=== PATIENT | female | born 1955 | race Caucasian/White ===

== ENCOUNTER → 2016-08-19 | Outpatient (CLI) | payer MEDICARE | END | disposition home or self-care (01) | LOC: YCHH 10:00 | PROVIDERS: ATTEND Family Medicine | DX: G35 Multiple sclerosis (principal); E78.5 Hyperlipidemia, unspecified; E03.9 Hypothyroidism, unspecified; D64.9 Anemia, unspecified; F32.9 Major depressive disorder, single episode, unspecified ==

== ENCOUNTER → 2016-09-11 | Outpatient (CLI) | payer MEDICARE ==
--- NOTE | 2016-09-11 15:43 | MRI ---
EXAM DESCRIPTION: Brain w/wo Contrast CLINICAL HISTORY: 60 years Female, MULTIPLE SCLEROSIS COMPARISON: June 28, 2013 TECHNIQUE: MRI of the brain is performed according to our usual protocol including multiplanar multi sequence technique. Post gadolinium imaging is performed following IV administration of gadolinium enhancement FINDINGS: Preliminary noncontrast imaging demonstrates ventriculomegaly, essentially unchanged from prior study without evidence of mass effect or midline shift. No evidence of restricted diffusion is seen. No extra-axial fluid collections or mass effect is noted. No evidence of intracranial or parenchymal hemorrhage is seen and a large focal area of cortical gliosis or encephalomalacia is not apparent. T2 and FLAIR signal intensity images demonstrate extensive white matter disease in a pattern typical of a multiple sclerosis. Pattern and distribution is very similar to that previously seen. There is however a more central cystic appearance to some of the areas of abnormality on the FLAIR sequence on today's examination. One or two of the periventricular areas appear slightly less prominent than previously seen and others appear the same or minimally more indistinct but more prominent. Overall the degree of white matter disease appears little changed but with a slightly different pattern with a central area of diminished white matter signal within the lesions. Wonder if this could be related to ongoing therapy. Postcontrast imaging demonstrates normal meningeal and vascular structures but enhancing lesions are not apparent. Incidental note of a previous numerous lesions within the cerebellar hemispheres is less prominent on today's follow-up study. IMPRESSION: 1. Typical white matter changes of multiple sclerosis that are moderately extensive throughout both cerebral hemispheres in a periventricular and white matter distribution with less obvious involvement within the cerebellum with less intense lesions noted. 2. The extent of disease is approximately the same as previously seen but the pattern is slightly different with less intense white matter signal changes in the central portion of each lesion suggesting either improvement or developing cystic change, possibly related to therapy. A few of the lesions appear slightly less prominent and others slightly more prominent but less distinct in appearance. 3. Large new areas of abnormality are not apparent. 4. Stable modest ventriculomegaly consistent with an element of atrophy. 5. No evidence of restricted diffusion or abnormal enhancement to suggest an acute new area of infarction or ischemia or plaque formation. 6. Subdural or subarachnoid hemorrhage or mass effect or midline shift is not apparent. Electronically signed by: Sathya Alarcon MD 09/11/2016 3:41 PM CDT
--- NOTE | 2016-09-11 15:53 | MRI ---
EXAM DESCRIPTION: Cervical Spine w/wo Contrast CLINICAL HISTORY: CERVICAL DISC DISORDER W MYELOPATHY, HIGH CERVICAL REGION history of MS COMPARISON: November 29, 2013 TECHNIQUE: MRI of the cervical spine is performed according to our usual protocol. Pre and postcontrast axial and sagittal imaging is correlated with prior study FINDINGS: MRI of the cervical spine demonstrates normal alignment with multilevel disc desiccation with mild disc space narrowing at C6-7 and multilevel mild annular bulges at all levels from C3-4 through C6-7. The foramen magnum and craniocervical junction as well as the C2-3 disc level and C7-T1 and upper thoracic disc level is normal in appearance. There is a moderate central disc bulge at T2-3 that in retrospect is unchanged from 2013 and without significant or severe spinal stenosis. No intradural or definite intramedullary mass is noted and a distinct or definite lesion within the cervical or upper thoracic cord is not apparent. No definite expansile lesion or area of increase cervical cord signal intensity is seen. At the C5 level on the right posterior aspect of the cord there is questionably a tiny area of increased cord signal intensity that may represent a area of demyelination. There is no associated enhancement or mass effect at this location. IMPRESSION: 1. Multilevel mild degenerative disc disease and annular bulges from C3-4 through C6-7 and stable small mild central disc protrusion at T2-3, unchanged. 2. There is questionably a very small area of increased signal and demyelination in the right posterior aspect of the cord at the inferior C5 level without associated mass effect or enhancement that represents a questionable solitary lesion. 3. No bony abnormalities or other changes seen. Electronically signed by: Sathya Alarcon MD 09/11/2016 3:52 PM CDT
== END | disposition home or self-care (01) ==
LOC: MRI 09:54
PROVIDERS: ATTEND Psychiatry & Neurology Neurology
DX: G35 Multiple sclerosis (principal); M50.01 Cervical disc disorder with myelopathy, high cervical region; Z01.812 Encounter for preprocedural laboratory examination

== ENCOUNTER 2016-10-22 12:32 | Observation (INO) | payer MEDICARE ==
--- NOTE | 2016-10-22 12:34 | HP ---
SUPERVISING PHYSICIAN: Sathya Lazar M.D. CHIEF COMPLAINT: Right lower leg swelling. HISTORY OF PRESENT ILLNESS: This is a 61 year-old female patient who was seen in her primary care physician's office today, Dr. Lazar, due to right lower leg swelling. She had been seen several weeks ago by Lanny Valentine NP, for some swelling and had received some Hydrochlorothiazide. Her condition has not improved and she saw Dr. Serrano in a clinic appointment today. It is to be noted that she does have a history of multiple sclerosis since 2008 and she has much more difficulty in the right side than she does her left side due to her multiple sclerosis. She was seen in clinic today and routine lab was done. Her complete metabolic panel was basically within normal limits with the exception of her alkaline phosphatase was slightly elevated at 141. She also had a CBC that was within normal limits except slightly elevated eosinophil percentage. She was sent over to the hospital for a right lower extremity venous Doppler. Radiology reported to Dr. Lazar that she had a DVT of the right lower leg and I was called for admission. PAST MEDICAL HISTORY: 1. Multiple sclerosis diagnosed in 2008. 2. History of tobacco abuse. 3. Osteoporosis. 4. Peripheral vascular disease. 5. Atopic eczema. PAST SURGICAL HISTORY: 1. Tonsillectomy and adenoidectomy. 2. Multiple bunion removals. 3. Right hip surgery due to right femur fracture. OUTPATIENT MEDICATIONS: Per the EMR and awaiting verification. ALLERGIES: PENICILLIN. SOCIAL HISTORY: She has a past history of cigarette smoking and she quit in July of 2015. She denies any ETOH or illicit drug use. REVIEW OF SYSTEMS: GENERAL: Negative for chills, fever, fatigue or weight loss. RESPIRATORY: Negative for cough, dyspnea or wheezing. CARDIOVASCULAR: Negative for chest pain, palpitations or tachycardia. GASTROINTESTINAL: Negative for constipation, diarrhea, nausea, vomiting or abdominal pain. MUSCULOSKELETAL: Negative for back pain or myalgias. EXTREMITIES: Positive for right lower extremity edema. INTEGUMENT: Positive for rash on the right lower extremity. Negative for any lesions. NEUROLOGIC: Negative for dizziness, headaches or seizures. PHYSICAL EXAMINATION: VITAL SIGNS: She is afebrile, heart rate 82, blood pressure 125/77, respiratory rate 16, O2 sat 99% on room air. GENERAL: This is a 63 year-old female patient lying in her hospital bed. She is in no acute distress. HEENT: Normocephalic and atraumatic. Pupils are equal and reactive. Oropharynx is clear. Oral mucous membranes are moist. NECK: Supple without mass. CHEST: Clear to auscultation bilaterally. There is equal rise and fall of the chest with inspiration and expiration. CARDIOVASCULAR: Regular rate and rhythm. ABDOMEN: Soft, nondistended, non-tender. Bowel sounds are positive. EXTREMITIES: The right lower extremity is edematous from distal of the knee down to the foot. Pedal pulses bilaterally are about +2. SKIN: She does have an eczema-like rash on her right lower extremity that is circumferential just above the ankle area. NEUROLOGIC: She is awake, alert and oriented times three. LABORATORY: Labs and films are as per the History of Present Illness with the exception of her PT 11.6, INR 1.03 and PTT is 26.2. All other labs and films have been reviewed via the EMR. ASSESSMENT: 1. Right lower extremity deep venous thrombosis. 2. Multiple sclerosis since 2008. 3. Right lower extremity edema most likely due to #1. 4. Atopic eczema. PLAN: We will place the patient in observation. She will receive Lovenox 1 mg per kg times 2 doses. She will start her Xarelto tomorrow approximately 2 hours prior to what would be the third dosing of her Lovenox, although she will only get 2 doses of Lovenox. Her Xarelto dosing will be 15 mg b.i.d. for 21 days and then 20 mg daily. She will have followup with Dr. Lazar to determine how long she will need to be on her Xarelto treatment. I will recheck some labs in the morning and hopefully she will be discharged tomorrow afternoon with close followup with Dr. Lazar. I have restarted her home medication as well as given her some steroid cream for her eczema on the lower right leg. We will continue to monitor the patient closely and followup as needed. Dr. Lazar is the supervising physician and available for consultation. #[id number] [facility]
[2016-10-22] MEDS ORDERED: SODIUM CHLORIDE 0.9% (FLUSH) 10 ML SYG IV PRN ×2 (14:37→14:41)
[2016-10-22] MEDS ORDERED: ACETAMINOPHEN 325 MG TAB PO PRN (14:41)
[2016-10-22] MEDS ORDERED: IV SET AND CAP CHANGE INJ INJ SCH ×2 (15:00)
[2016-10-22] MEDS ORDERED: PANTOPRAZOLE SODIUM IV 40 MG VIAL IV SCH (15:00)
[2016-10-22] MEDS ORDERED: CYCLOBENZAPRINE HCL 10 MG TAB PO PRN (15:05)
[2016-10-22] MEDS ORDERED: traMADol HCL 50 MG TAB PO PRN (15:05)
[2016-10-22] MEDS ORDERED: diazePAM 5 MG TAB PO PRN (15:05)
[2016-10-22] MEDS: ENOXAPARIN SODIUM 60 MG/0.6 ML SYG SUBCU SCH (15:37)
[2016-10-22] MEDS ORDERED: PANTOPRAZOLE SODIUM TAB 40 MG PO ONE (19:36)
[2016-10-22] MEDS: TRIAMCINOLONE 0.1% CREAM 15 GM TUBE TOP SCH (20:52)
[2016-10-22] MEDS: SODIUM CHLORIDE 0.9% (FLUSH) 10 ML SYG IV SCH (20:52)
[2016-10-23] MEDS: ENOXAPARIN SODIUM 60 MG/0.6 ML SYG SUBCU SCH (02:53)
[2016-10-23] MEDS ORDERED: PANTOPRAZOLE SODIUM TAB 40 MG PO SCH (06:30)
[2016-10-23] MEDS ORDERED: BIFIDOBACTERIUM INFANTIS 4 MG CAP ONE (07:10)
[2016-10-23] MEDS: TRIAMCINOLONE 0.1% CREAM 15 GM TUBE TOP SCH (08:36)
[2016-10-23] MEDS: SODIUM CHLORIDE 0.9% (FLUSH) 10 ML SYG IV SCH (08:36)
[2016-10-23] MEDS ORDERED: DIMETHYL FUMARATE 240 MG PO SCH (09:00)
[2016-10-23] MEDS ORDERED: NON-FORMULARY MEDICATION 1 EA MIS (Probiotic Product [Probiotic] 1 TAB) PO SCH (09:00)
[2016-10-23] MEDS ORDERED: DIMETHYL FUMARATE PO SCH (09:00)
[2016-10-23] MEDS ORDERED: BIFIDOBACTERIUM INFANTIS 4 MG CAP PO SCH (09:00)
[2016-10-23] MEDS ORDERED: NON-FORMULARY MEDICATION 1 EA MIS PO SCH (13:00)
[2016-10-23 14:14] VITALS: BP 102/64; TEMP 98.4; O2SAT 97
[2016-10-23] MEDS ORDERED: POTASSIUM CHLORIDE 20 MEQ TAB PO ONE (14:38)
--- NOTE | 2016-10-23 15:19 | DS ---
SUPERVISING PHYSICIAN: Sathya Lazar M.D. DISCHARGE DIAGNOSIS: 1. Right lower extremity deep venous thrombosis. 2. Multiple sclerosis since 2008. 3. Right lower extremity edema most likely due to number 1. 4. Atopic eczema. HISTORY OF PRESENT ILLNESS: This is a 61 year-old female patient who was seen in her primary care physician's office today, Dr. Lazar, due to right lower leg swelling. She had been seen several weeks ago by Lanny Valentine NP, for some swelling and had received some Hydrochlorothiazide. Her condition has not improved and she saw Dr. Serrano in a clinic appointment today. It is to be noted that she does have a history of multiple sclerosis since 2008 and she has much more difficulty in the right side than she does her left side due to her multiple sclerosis. She was seen in clinic today and routine lab was done. Her complete metabolic panel was basically within normal limits with the exception of her alkaline phosphatase was slightly elevated at 141. She also had a CBC that was within normal limits except slightly elevated eosinophil percentage. She was sent over to the hospital for a right lower extremity venous Doppler. Radiology reported to Dr. Lazar that she had a DVT of the right lower leg and I was called for admission. HOSPITAL COURSE: The patient was given Lovenox 1 mg per kg times 2 doses and then started on the started pack of Xarelto at 15 mg b.i.d. times 21 days. Her CBC and chemistries were stabilized with the exception of her potassium was slightly low this morning at 3.1 and she received 40 mEq of K-Dur. Her pedal pulses were palpable bilaterally at +2. She was also treated with Triamcinolone on the eczema on the right lower leg. Her vital signs have been stable and she can be discharged home. DISCHARGE PLAN: The patient will be discharged home in stable condition. She has a followup appointment with Dr. Lazar on 10/28/16 at 10:00 AM. She also has [facility] and physical therapy. I have also given her a Xarelto starter pack for DVT treatment. She will be getting 15 mg b.i.d. for 21 days and then change to 20 mg daily. She will have enough Xarelto for 30 days. She can get that refilled with Dr. Lazar. She is to call Dr. Lazar's office or return to the hospital for any complaints or worsening symptoms. DISCHARGE MEDICATIONS: 1. Tramadol. 2. Probiotics. 3. Tecfidera. 4. Diazepam. 5. Cyclobenzaprine. 6. Vitamin D. 7. Aspirin. 8. Xarelto. Dr. Lazar is the collaborating physician available for consultation. #[id number] [facility]
== END 2016-10-23 15:12 | disposition home or self-care (01) ==
LOC: MS 12:32
PROVIDERS: ADMIT Nurse Practitioner Acute Care; ATTEND Nurse Practitioner Acute Care
DX: I82.411 Acute embolism and thrombosis of right femoral vein (principal); I82.431 Acute embolism and thrombosis of right popliteal vein; G35 Multiple sclerosis; R60.0 Localized edema; L30.8 Other specified dermatitis; M81.0 Age-related osteoporosis without current pathological fracture; I73.9 Peripheral vascular disease, unspecified; Z88.0 Allergy status to penicillin; Z87.891 Personal history of nicotine dependence
CPT/HCPCS: 36415 ×2; 80053; 85025; 85610; 85730; 94760 ×6; 96372 ×2; 96374; G0378; J1650 ×2

== ENCOUNTER → 2016-10-22 | Outpatient (CLI) | payer MEDICARE ==
--- NOTE | 2016-10-23 08:51 | US ---
EXAM DESCRIPTION: Venous,Lower Extremity RT CLINICAL HISTORY: EDEMA COMPARISON: None. TECHNIQUE: 2D grayscale and color venous duplex Doppler evaluation of the lower extremity are obtained from groin to calf. FINDINGS: Hypoechoic thrombus with noncompressibility is seen in the right common femoral vein extending to the popliteal vein. There is lack of significant vascular flow in the deep venous vasculature. There is also mild hypoechoic thrombus in the greater saphenous vein. Posterior tibial and peroneal veins show normal flow without thrombus. Mild subcutaneous soft tissue edema of the distal right lower extremity is seen. IMPRESSION: Extensive deep venous thrombosis of the right lower extremity from the common femoral vein to the popliteal vein is seen.. Findings on this exam were called to Dr. Lazar at 0845 hours on October 23, 2016.. Electronically signed by: Suman Joy MD 10/23/2016 8:49 AM CDT
== END | disposition home or self-care (01) ==
LOC: US 11:47
PROVIDERS: ATTEND Family Medicine
DX: I82.411 Acute embolism and thrombosis of right femoral vein (principal); R60.0 Localized edema

== ENCOUNTER → 2017-03-05 | Outpatient (CLI) | payer MEDICARE | END | disposition home or self-care (01) | LOC: YCHH 10:38 | PROVIDERS: ATTEND Family Medicine | DX: G35 Multiple sclerosis (principal); E78.5 Hyperlipidemia, unspecified; N39.0 Urinary tract infection, site not specified ==

== ENCOUNTER → 2018-01-18 | Outpatient (CLI) | payer MEDICARE | LOC: YCHH 10:11 | PROVIDERS: ATTEND Family Medicine | DX: G35 Multiple sclerosis (principal); E78.5 Hyperlipidemia, unspecified; D64.9 Anemia, unspecified ==

== ENCOUNTER → 2018-08-31 | Outpatient (CLI) | payer MEDICARE | LOC: YCHH 09:53 | PROVIDERS: ATTEND Family Medicine | DX: G35 Multiple sclerosis (principal); E78.5 Hyperlipidemia, unspecified; E55.9 Vitamin D deficiency, unspecified; D64.9 Anemia, unspecified ==

== ENCOUNTER → 2018-09-07 | Outpatient (CLI) | payer MEDICARE | LOC: GMAM 09:55 | PROVIDERS: ATTEND Family Medicine | DX: D64.9 Anemia, unspecified (principal) ==

== ENCOUNTER → 2018-09-15 | Outpatient (CLI) | payer MEDICARE ==
--- NOTE | 2018-09-15 21:10 | MRI ---
EXAM DESCRIPTION: Brain w/wo Contrast: Magnetic Resonance Imaging. CLINICAL HISTORY: 62 years Female MS COMPARISON: MRI scan of the brain without gadolinium contrast 09/11/2016. TECHNIQUE: Multiplanar, high-field MRI, multiple conventional sequences, without and with gadolinium IV contrast. No adverse reactions. Multiple axial diffusion sequences. . Technically difficult study with most of the postcontrast images degraded by patient motion. FINDINGS: Hyperintense FLAIR and T2-weighted signal in the periventricular white matter/mike radiata and centrum semiovale and subcortical white matter, typical for multiple sclerosis. Cystic changes are seen in some of the white matter lesions showing no significant increase or decrease. Minimal if any involvement of the corpus callosum is stable. No abnormal enhancement. Slight increase in size of a periventricular right frontal lesion since the prior study. Decreasing involvement of the left parietal centrum semiovale is noted. No enhancement. Normal signal in the bilateral basal ganglia except for one small stable lesion posterior upper right aspect. No hemorrhage, no cerebral edema, no mass-effect. Normal contrast enhancement. Normal signal in the brainstem. Small lesions again seen in the bilateral cerebellar hemispheres. No hemorrhage, no cerebral edema, no mass-effect. Normal contrast enhancement. Concordance of the diffusion and non-diffusion sequences with no evidence of acute or subacute infarction. Ventricles are enlarged as seen on the prior study, slightly larger on the left. Cortical sulci and other CSF spaces, and the subdural spaces are stable, slightly more prominent on the left.. No effacement or displacement. No midline shift. No extra-axial hemorrhage. Normal contrast enhancement. IACs are symmetric bilaterally. No fluid in the bilateral mastoid air cells. No mass effect in the bilateral Cerebellopontine angles. Normal contrast enhancement. Pituitary gland occupies most of the sella. Normal contrast enhancement. Base of the cerebellar tonsils is above the foramen magnum. Minimal mucoperiosteal thickening in some of the paranasal sinuses. The bony calvarium is intact. Again noted is hyperostosis of the bilateral inner table of the frontal bones, unchanged. IMPRESSION: 1. Compared to the prior study, there is minimal change in periventricular mike radiata white matter lesions and white matter lesions in the centrum semiovale, consistent with multiple sclerosis. No abnormal enhancement. 2. Noncontrast MRI diffusion study showing no evidence of acute or subacute significant ischemia or infarction. Electronically signed by: Lee Cage MD 09/15/2018 9:07 PM CDT
--- NOTE | 2018-09-16 09:22 | MRI ---
EXAM DESCRIPTION: Cervical Spine w/wo Contrast: MRI. CLINICAL HISTORY: 62 years Female MS COMPARISON: MRI scan of the cervical spine without and with gadolinium IV contrast 09/11/2016. TECHNIQUE: Multiplanar, high-field MRI, multiple sequences, before and after gadolinium IV contrast injection. Cervical spine. FINDINGS: Normal cord signal; no cord compression, no cord swelling, no cord edema. No abnormal cord enhancement. The questionable region of abnormal cord signal at C5 on the prior study is not seen on this study. C3-C4: tiny posterior disc bulge. Bilateral small uncinate spurs. Canal and neural foramina are patent. Facets are negative. Normal enhancement. C4-C5: Normal signal in the disc and disc space preserved. No bulging. Minimal hypertrophy of the left facet and narrowing of the left neural foramen. Canal and right neuroforamen are patent. No abnormal enhancement. C5-C6: Normal signal in the disc with disc space preserved. Anterior disc bulge with endplate ridging. Tiny posterior midline bulge but not abutting the cord. Small left uncinate spur and minimal narrowing of the left neural foramen. Canal and right neuroforamen are patent. Normal enhancement. C6-C7: Minimal disc space loss with disc desiccation. Tiny posterior disc osteophyte bulge into the canal but not abutting the cord. Bilateral uncinate spurs. Mild canal and mild neural foraminal narrowing. Normal contrast enhancement. Progressed C7-T1: C7-T1: normal signal in the disc with disc space preserved. Facets are normal. Canal and neural foramina are patent, but there are bilateral perineural cysts in the foramina. No abnormal enhancement. T1-T2: Normal signal in the disc with disc space preserved. Facets are normal. Canal is patent. Large bilateral perineural cysts in the bilateral neural foramina but no abnormal enhancement. Also bilateral perineural cysts in the T2-T3 neural foramina larger on the right. No abnormal enhancement. Normal signal in the C2-C3 disc with no bulging. Disc spaces preserved. Canal and neural foramina are patent. Facet joints negative. Spinal alignment minimally kyphotic C2-C4. Atlantoaxial joint no arthrosis. Base of the cerebellar tonsils is above the foramen magnum. Paravertebral soft tissues negative. Vertebral bodies are not compressed at any level. Normal marrow signal in the remaining vertebral bodies and the posterior elements. IMPRESSION: 1. Normal signal in the entire cord with no edema, no atrophy, and no swelling, and normal enhancement. No cord compression. 2. Minimal spondylosis at C5-6 and C6-7 with no significant disc bulge. No canal or neural foraminal stenosis. Normal enhancement. Stable since the prior study. 3. Multiple bilateral perineural cysts in the neural foramina as described from C7-T1 to T2-T3. No enhancement. Stable since the prior study. Electronically signed by: Lee Cage MD 09/16/2018 9:20 AM CDT
== END ==
LOC: MRI 10:07
PROVIDERS: ATTEND Psychiatry & Neurology Neurology
DX: G35 Multiple sclerosis (principal); M50.01 Cervical disc disorder with myelopathy, high cervical region; M47.892 Other spondylosis, cervical region; M71.38 Other bursal cyst, other site

== ENCOUNTER → 2018-10-12 | Outpatient (CLI) | payer MEDICARE | LOC: YCHH 10:34 | PROVIDERS: ATTEND Family Medicine | DX: E55.9 Vitamin D deficiency, unspecified (principal) ==

== ENCOUNTER → 2019-02-24 | Outpatient (CLI) | payer MEDICARE | LOC: YCHH 10:14 | PROVIDERS: ATTEND Family Medicine | DX: D64.9 Anemia, unspecified (principal); N18.9 Chronic kidney disease, unspecified; E78.5 Hyperlipidemia, unspecified; E11.9 Type 2 diabetes mellitus without complications; E55.9 Vitamin D deficiency, unspecified ==

== ENCOUNTER → 2019-09-04 | Outpatient (CLI) | payer MEDICARE, OTHER | LOC: YCHH 09:55 | PROVIDERS: ATTEND Family Medicine | DX: G35 Multiple sclerosis (principal); E78.5 Hyperlipidemia, unspecified; R73.9 Hyperglycemia, unspecified; E55.9 Vitamin D deficiency, unspecified; D64.9 Anemia, unspecified ==

== ENCOUNTER → 2020-01-01 | Outpatient (CLI) | payer OTHER | LOC: YCHH 10:03 | PROVIDERS: ATTEND Family Medicine | DX: N18.9 Chronic kidney disease, unspecified (principal); E55.9 Vitamin D deficiency, unspecified; D64.9 Anemia, unspecified; E78.5 Hyperlipidemia, unspecified; E11.9 Type 2 diabetes mellitus without complications ==

== ENCOUNTER 2020-04-15 18:47 | Observation (INO) | payer OTHER ==
[2020-04-15] MEDS ORDERED: SODIUM CHLORIDE 0.9% (FLUSH) 10 ML SYG IV PRN ×2 (19:29→22:32)
--- NOTE | 2020-04-15 19:59 | RAD ---
EXAM: Chest,1 View CLINICAL INDICATION: Chest pain COMPARISON: There is no previous study for comparison. FINDINGS: A single view of the chest was obtained. Atherosclerotic calcifications are noted involving the aorta. The heart size is normal. The pulmonary vascularity is unremarkable. The lungs are clear. There is no consolidation, infiltrate, pleural effusion, or pneumothorax. IMPRESSION: No evidence of active pulmonary disease. Electronically signed by: Kofi Howard MD 04/15/2020 7:58 PM [facility]
[2020-04-15] MEDS ORDERED: ASPIRIN (CHEWABLE) 81 MG TAB PO ONE (22:32)
[2020-04-15] MEDS ORDERED: MORPHINE SULFATE INJ 10 MG/ML VIAL IV PRN (22:32)
[2020-04-15] MEDS ORDERED: NITROGLYCERIN 0.4 MG 25 EA TAB SL PRN (22:32)
[2020-04-15] MEDS ORDERED: ACETAMINOPHEN 325 MG TAB PO PRN (22:32)
--- NOTE | 2020-04-15 22:55 | ED.PDOC ---
History of Present Illness - General Chief Complaint: General Stated Complaint: "hurts to swallow" Time Seen by Provider: 04/15/20 19:24 Source: patient, RN notes reviewed, Vital Signs reviewed, family, RN/MD - Dr. Marixa Lazar Exam Limitations: no limitations - History of Present Illness Initial Comments: Patient is a 64-year-old white female who was complaining of some chest ti ghtness for the last 1 to 2 days and was seen by her doctor today. Lab work was returned and noted to have a slightly elevated troponin of 0.07 and patient was told to come to the ED. Patient complains of chest tightness with some mild shortness of breath. Patient additionally has pain with swallowing. Patient denies any other symptoms. The tightness is mild in intensity. It is nonradiating. Nothing makes it better or worse. Timing/Duration: 24 hours, constant Severity: mild Improving Factors: nothing Worsening Factors: nothing Associated Symptoms: other - dysphagia Allergies/Adverse Reactions: Allergies Penicillin G Allergy (Verified 04/15/20 19:07) Home Medications: Ambulatory Orders Aspirin [Aspirin Childrens] 81 mg PO DAILY 10/22/16 Cholecalciferol [Vitamin D3] 5,000 unit PO DAILY 10/22/16 Cyclobenzaprine HCl [Flexeril] 10 mg PO BEDTIME PRN 10/22/16 Diazepam 5 mg PO BID PRN 10/22/16 Dimethyl Fumarate [Tecfidera] 240 mg PO BID 10/22/16 Probiotic Product [Probiotic] 1 tab PO DAILY 10/22/16 Tramadol HCl 50 mg PO Q6HR PRN 10/22/16 Rivaroxaban [Xarelto Starter Pack 15 & 20 mg] 1 tab PO BID #1 pack 10/23/16 Review of Systems - Review of Systems Constitutional: States: no symptoms reported, see HPI. Denies: chills, fever, malaise, weakness EENTM: States: no symptoms reported. Denies: eye pain, blurred vision, double vision Respiratory: States: no symptoms reported. Denies: cough, short of breath, stridor, wheezing Cardiology: States: see HPI, chest pain - tightness. Denies: palpitations, syncope Gastrointestinal/Abdominal: States: no symptoms reported. Denies: abdominal pain, diarrhea, nausea, vomiting Genitourinary: States: no symptoms reported. Denies: dysuria, frequency Musculoskeletal: States: no symptoms reported. Denies: back pain, joint pain, neck pain Skin: States: no symptoms reported. Denies: change in color, rash Neurological: States: no symptoms reported. Denies: headache, tingling, tremors, weakness Endocrine: States: no symptoms reported. Denies: increased hunger, increased thirst, increased urine Hematologic/Lymphatic: States: no symptoms reported. Denies: blood clots, easy bleeding All other Systems: Reviewed and Negative, No Change from Baseline Past Medical History (General) - Patient Medical History Hx Seizures: No Hx Stroke: No Hx Asthma: No Hx of COPD: No Hx Cardiac Disorders: No Hx Congestive Heart Failure: No Hx Pacemaker: No Hx Hypertension: No Hx Diabetes: No Hx MRSA: No Surgical History: no surgical history - Vaccination History Hx Influenza Vaccination: Yes Hx Pneumococcal Vaccination: Yes - Social History Hx Tobacco Use: No Hx Alcohol Use: No Hx Substance Use: No Hx Substance Use Treatment: No Hx Depression: No Hx Physical Abuse: No Hx Emotional Abuse: No - Activities of Daily Living Hospice Agency (if applicable):: None - Female History Patient is a Female of Child Bearing Age (10 -59 yrs old): No Family Medical History - Family History Mother Family History: Unknown Living Status: Hx Family Stroke: No Hx Family Diabetes: Yes Father Living Status: Hx Family Stroke: Yes Hx Family Diabetes: Yes Physical Exam - Physical Exam General Appearance: Alert, Comfortable, Unkempt, Well Developed, Well Hydrated, Well Nourished Eye Exam: bilateral normal Ears, Nose, Throat: hearing grossly normal, normal ENT inspection, normal pharynx Neck: non-tender, full range of motion, supple Respiratory: chest non-tender, lungs clear, normal breath sounds, no respiratory distress, no accessory muscle use Cardiovascular/Chest: normal peripheral pulses, no edema, no gallop, tachycardia Peripheral Pulses: radial,right: 2+, radial,left: 2+ Gastrointestinal/Abdominal: normal bowel sounds, non tender, soft Back Exam: normal inspection, no CVA tenderness, no vertebral tenderness Extremity: normal inspection, no pedal edema, no calf tenderness, normal capillary refill Neurologic: alert, normal mood/affect, oriented x 3 Skin Exam: normal color, warm/dry Lymphatic: no adenopathy Progress - Progress Progress: Differential diagnosis: Acute coronary syndrome, NSTEMI, pneumonia, Covid among others. 04/15/20 23:02 Patient with continued pain. Troponin remains flat. Patient to be admitted for further testing. Patient with a history of DVT/PE and therefore will obtain a CTA of the chest. I discussed the plan of care with the patient and her they voiced understanding and agreement. I discussed this patient with Chaim the TRUCK SUPERVISOR hospitalist and he accepts patient for admission. Johnson Kim M.D. #[id number] - Results/Orders Results/Orders: EKG performed 15 April 2020 at 2026 hrs.: Normal sinus rhythm at 92 bpm, normal axis deviation, nonspecific ST abnormality, no ST elevation concerning for acute ischemia, abnormal EKG. EXAM: Chest,1 View CLINICAL INDICATION: Chest pain COMPARISON: There is no previous study for comparison. FINDINGS: A single view of the chest was obtained. Atherosclerotic calcifications are noted involving the aorta. The heart size is normal. The pulmonary vascularity is unremarkable. The lungs are clear. There is no consolidation, infiltrate, pleural effusion, or pneumothorax. IMPRESSION: No evidence of active pulmonary disease. Electronically signed by: Kofi Howard MD 04/15/2020 7:58 PM [employer]FE[employer] MILLER 04/15/20 Dinner Cardiac Diet 04/15/20 19:29 IV Care:Saline Lock per Protoc QSHIFT Telemetry ONCE Sodium Chloride 0.9% (Flush) [Saline Flush Syringe] 3 ml IV PRN PRN 04/15/20 19:30 EKG STAT 04/15/20 19:44 Pulse Oximetry Assessment DAILY 04/15/20 22:32 Admission Order Routine Daily Weight (Standing Scale) DAILY Notify:Physician PRN Telemetry Q4H Acetaminophen [Tylenol] 325 - 650 mg PO Q4H PRN Aspirin [Baby Aspirin] 324 mg PO ONCE ONE Morphine Sulfate Inj 1 - 5 mg IV Q30MIN PRN Nitroglycerin 0.4 mg Tab [Nitrostat] 1 ea SL Q5MIN PRN Sodium Chloride 0.9% (Flush) [Saline Flush Syringe] 3 ml IV PRN PRN Oxygen Routine 04/15/20 22:33 EKG Assessment ONCE Oxygen Delivery Assessment: QSHIFT 04/15/20 22:36 D-DIMER,QUANTITATIVE Stat 04/15/20 22:51 RAPID SARS-CoV-2 RNA Stat 04/15/20 23:00 IV Set and Cap Change 1 ea INJ Q72H 04/16/20 00:01 EKG .PRN 04/16/20 04:00 CARDIAC ENZYME GROUP Q6H EKG Q6H 04/16/20 05:00 LIPID PANEL Routine 04/16/20 09:00 Aspirin 325 mg PO DAILY Sodium Chloride 0.9% (Flush) [Saline Flush Syringe] 3 ml IV BID Pulse Ox Daily 04/16/20 10:00 CARDIAC ENZYME GROUP Q6H EKG Q6H Laboratory Results - last 24 hr 04/15/20 04/15/20 20:13 21:52 WBC 11.1 H RBC 5.45 H Hgb 16.9 H Hct 50.8 H MCV 93.2 MCH 31.0 MCHC 33.3 RDW 14.7 H Plt Count 214 MPV 10.6 H Absolute Neuts (auto) 8.20 H Absolute Lymphs (auto) 1.70 Absolute Monos (auto) 1.10 H Absolute Eos (auto) 0.10 Absolute Basos (auto) 0.10 Neutrophils % 73.7 Lymphocytes % 15.5 L Monocytes % 9.7 H Eosinophils % 0.6 L Basophils % 0.5 PT 11.6 H INR 1.17 H PTT (SP) 21.9 Sodium 146 H Potassium 4.0 Chloride 105 Carbon Dioxide 28 Anion Gap 17.0 BUN 38 H Creatinine 1.02 BUN/Creatinine Ratio 37.3 H Random Glucose 110 H Serum Osmolality 300.2 H Calcium 9.6 Magnesium 2.2 Creatine Kinase 18 L CK-MB (CK-2) 2.7 CK-MB (CK-2) % Not Reportable Troponin I 0.07 H* 0.05 B-Natriuretic Peptide 153.0 H Vital Signs 04/15/20 04/15/20 04/15/20 18:55 19:08 19:49 Temperature 96.3 F L Pulse Rate [ 105 H 105 H 102 H pulse ox] Respiratory 16 16 16 Rate Blood Pressure 143/100 169/82 [Right Arm] O2 Sat by Pulse 97 96 Oximetry 04/15/20 04/15/20 04/15/20 20:49 21:30 22:00 Temperature Pulse Rate [ 100 H 102 H 98 H pulse ox] Respiratory 16 16 16 Rate Blood Pressure 199/99 166/83 136/96 [Right Arm] O2 Sat by Pulse 97 97 96 Oximetry Departure - Departure Clinical Impression: Elevated troponin I level Chest pain Qualifiers: Chest pain type: unspecified Qualified Code(s): R07.9 - Chest pain, unspecified Time of Disposition: 23:04 Disposition: Admit Patient Condition: Fair Departure Forms: ED Discharge - Pt. Copy, Patient Portal Self Enrollment Referrals: Sathya Lazar MD [Primary Care Provider] - 1-2 Weeks Home Medications: Ambulatory Orders Aspirin [Aspirin Childrens] 81 mg PO DAILY 10/22/16 Cholecalciferol [Vitamin D3] 5,000 unit PO DAILY 10/22/16 Cyclobenzaprine HCl [Flexeril] 10 mg PO BEDTIME PRN 10/22/16 Diazepam 5 mg PO BID PRN 10/22/16 Dimethyl Fumarate [Tecfidera] 240 mg PO BID 10/22/16 Probiotic Product [Probiotic] 1 tab PO DAILY 10/22/16 Tramadol HCl 50 mg PO Q6HR PRN 10/22/16 Rivaroxaban [Xarelto Starter Pack 15 & 20 mg] 1 tab PO BID #1 pack 10/23/16 Decision To Admit - Decistion To Admit Decision to Admit Date: 04/15/20 Decision to Admit Time: 21:30
[2020-04-15] MEDS ORDERED: IV SET AND CAP CHANGE INJ INJ SCH (23:00)
--- NOTE | 2020-04-15 23:47 | CT ---
PROCEDURE: CT CHEST ANGIOGRAPHY WITH IV CONTRAST CLINICAL HISTORY: chest pain and elevated d dimer TECHNIQUE: Contiguous axial images obtained through the chest during angiographic phase following the uneventful administration of IV contrast. Sagittal and coronal reformatted images were provided. MIP reformatted images were provided. This exam was performed according to our departmental dose-optimization program, which includes automated exposure control, adjustment of the mA and/or kV according to patient size and/or use of iterative reconstruction technique. COMPARISON: No prior exams provided for comparison. FINDINGS: Diagnostic quality: There is good opacification of the pulmonary arterial tree. Motion artifact degrades image quality and limits evaluation of segmental and subsegmental vessels. Lungs: Bibasilar subsegmental atelectasis/pleural parenchymal scar. Layering mucus/debris within the trachea. Pleura: Trace right pleural effusion. No pneumothorax. Heart and pericardium: The heart is enlarged. Coronary artery calcification. No pericardial effusion. Mediastinum and kvng: No pathologically enlarged lymph nodes. The esophagus is mildly patulous with air fluid level. The mid to distal esophagus appears somewhat thickened. Small hiatal hernia. Lower neck and chest wall: Unremarkable Vessels: No pulmonary arterial filling defects. Mild to moderate atherosclerotic disease. No thoracic aortic aneurysm. Upper abdomen: The liver is diffusely low in density compatible with steatosis. Bones: Multilevel spondylosis. No acute fracture. IMPRESSION: 1. Motion artifact degrades image quality and limits evaluation of segmental and subsegmental vessels. No central pulmonary embolic disease. 2. The mid to distal esophagus appears somewhat thickened and may reflect nonspecific esophagitis. 3. Trace right pleural effusion. Bibasilar subsegmental atelectasis/pleural parenchymal scar. 4. Other findings as above. Electronically signed by: Andrés Whaley MD 04/15/2020 11:46 PM CARDIOLOGY COORDINATOR
[2020-04-16] MEDS ORDERED: PANTOPRAZOLE SODIUM IV 40 MG VIAL ONE (04:55)
[2020-04-16 05:16] VITALS: TEMP 98.3; O2SAT 96
[2020-04-16] MEDS ORDERED: LACTATED RINGERS 1,000 ML IVS PRN (08:10)
[2020-04-16] MEDS ORDERED: ALUM & MAG HYDROX-SIMETHICONE 30 ML, LIDOCAINE VISCOUS 2% 15 ML PO ONE ×2 (08:21)
[2020-04-16] MEDS ORDERED: diazePAM 5 MG TAB PO PRN (08:23)
[2020-04-16] MEDS ORDERED: LIDOCAINE HCL 2% (MOUTH-THROAT) 15 ML UD ONE (08:29)
[2020-04-16] MEDS ORDERED: ALUM & MAG HYDROX-SIMETHICONE 30 ML UD ONE (08:29)
[2020-04-16] MEDS ORDERED: CHOLECALCIFEROL 2,000 IU TAB PO ONE (08:29)
[2020-04-16] MEDS ORDERED: CHOLECALCIFEROL 5000 UNIT PO SCH (09:00)
[2020-04-16] MEDS ORDERED: SODIUM CHLORIDE 0.9% (FLUSH) 10 ML SYG IV SCH (09:00)
[2020-04-16] MEDS ORDERED: DIMETHYL FUMARATE 240 MG PO SCH (09:00)
[2020-04-16] MEDS ORDERED: ASPIRIN TABLET 325 MG TAB PO SCH (09:00)
[2020-04-16 10:03] VITALS: BP 137/74
--- NOTE | 2020-04-16 10:04 | SSS ---
SUPERVISING PHYSICIAN: Kalyan Wyman MD CHIEF COMPLAINT: Chest pain. HISTORY OF PRESENT ILLNESS: This is a 64-year-old female who came to the Emergency Room from her primary care physician's office. Apparently yesterday she had complaint of some chest pain across midchest that radiated to her back. It had been going on for one to two days. She was seen by her primary care physician and they did cardiac markers which showed an elevated troponin of 0.07. She has had some pain with swallowing. Therefore, she came to the Emergency Room. In the ER, she was evaluated and had EKGs which showed no acute EKG changes, however, troponin was 0.07 here as well. Repeat troponin was 0.05. Therefore, she was admitted for chest pain observation. Chart review from previous admission does reveal that she had a DVT. Therefore, we checked a D- dimer which was mildly elevated at 829. Therefore, CT angiography was done and did not show any central pulmonary emboli, but incidentally found that there was some mid to distal esophagus thickening consistent with esophagitis. Overnight, she had no shortness of breath, but still complained of some chest discomfort still across the chest and to the back. Troponins have remained negative. EKGs have continued to not show any acute findings. PAST MEDICAL HISTORY: 1. Multiple sclerosis. 2. Osteoporosis. 3. Peripheral vascular disease. 4. Atopic eczema. 5. History of deep venous thromboses. PAST SURGICAL HISTORY: 1. Tonsillectomy and adenoidectomy. 2. Multiple bunion removals. 3. Right hip surgery secondary to a right femur fracture. MEDICATIONS: Please see medication reconciliation list once verified in the computer. ALLERGIES: PENICILLIN. FAMILY HISTORY: Hypertension. SOCIAL HISTORY: The patient has distant history of smoking and quit about 5 years ago. No alcohol, no illicit drugs. REVIEW OF SYSTEMS: CONSTITUTIONAL: No fever or chills. No recent weight loss or weight gain. HEENT: No headaches, vision changes, ear pain, nasal congestion. Positive for difficulty swallowing. RESPIRATORY: No cough, hemoptysis or pleuritic chest pain. CARDIOVASCULAR: Positive for chest pain. No extremity edema, no palpitations. GASTROINTESTINAL: No nausea, vomiting, diarrhea, constipation or abdominal pain. Positive for painful swallowing. GENITOURINARY: No dysuria, frequency or flank pain. ENDOCRINE: No polydipsia, polyuria or polyphagia. No heat or cold intolerance. MUSCULOSKELETAL: No joint pain, joint swelling or muscle cramps. NEUROLOGIC: No syncope, paresthesias or seizures. PHYSICAL EXAMINATION: VITAL SIGNS: Blood pressure 151/75, heart rate 95, respiratory rate 17, temperature 98.3, oxygen saturation 96%. GENERAL: Ms. Aiken is a 64-year-old female who is in no active distress. NEUROLOGIC: The patient is alert. LUNGS: Clear to auscultation bilaterally. CARDIOVASCULAR: Regular rate and rhythm. Normal S1, S2. ABDOMEN: Soft. Positive bowel sounds. EXTREMITIES: Lower extremities with no edema. Pulses 2+. Capillary refill is less than 2 seconds. LABORATORY: Sodium 146, potassium 4.0, chloride 105, CO2 28, BUN 38, creatinine 1.02. Glucose 110, calcium 9.6. BNP was mildly elevated at 153. Troponin I 0.07, but progressively normalized to 0.04. D-dimer was elevated at 829. INR 1.17, PT-T 21.9. White count 11.1 with no shift. Hemoglobin 16.9, hematocrit 50.8. RADIOLOGY: Chest x-ray with no acute cardiopulmonary findings. Additionally, CT scan has been reviewed. IMPRESSION: 1. Chest pain, rule out acute coronary syndrome. 2. Painful swallowing. 3. History of multiple sclerosis. 4. Dehydration. 5. Hypertension. PLAN: The patient was admitted for chest pain rule out with progressively normalizing troponins. EKGs without acute findings. She has the history of difficulty swallowing and esophagitis was found on CT scan to point more to a GI source. I am giving her a GI slider in addition to a proton pump inhibitor. I did discuss this with Dr. Lazar as well and he is in agreement that if her troponins remain negative, she can go home and be evaluated as an outpatient for GI issues. He has already written for proton pump inhibitor as an outpatient as well. She will likely need an EGD. #[id number] [facility]
[2020-04-17] MEDS ORDERED: CHOLECALCIFEROL 2,000 IU TAB PO SCH (09:00)
== END 2020-04-16 14:55 | disposition home or self-care (01) ==
LOC: ER 18:47 → MS 23:55
PROVIDERS: ADMIT Nurse Practitioner; ATTEND Nurse Practitioner
DX: R07.89 Other chest pain (principal); R13.10 Dysphagia, unspecified; G35 Multiple sclerosis; E86.0 Dehydration; I11.9 Hypertensive heart disease without heart failure; K20.90 Esophagitis, unspecified without bleeding; R74.8 Abnormal levels of other serum enzymes; R06.02 Shortness of breath; M81.0 Age-related osteoporosis without current pathological fracture; I73.9 Peripheral vascular disease, unspecified; Z20.822 Contact with and (suspected) exposure to COVID-19; Z79.01 Long term (current) use of anticoagulants; Z79.82 Long term (current) use of aspirin; Z79.899 Other long term (current) drug therapy; Z88.0 Allergy status to penicillin; Z86.718 Personal history of other venous thrombosis and embolism; Z86.711 Personal history of pulmonary embolism; Z82.49 Family history of ischemic heart disease and other diseases of the circulatory system; Z87.891 Personal history of nicotine dependence
CPT/HCPCS: A4216; J7120; 85379; 82553 ×2; 80061; 36415 ×2; 82550 ×3; 80048; 85025; 85730; 85610; 84484 ×4; 83880; 71045; 71275; 94760; 99285; 93005 ×3; G0378; 87635